=== PATIENT | male | born 2000 | race Caucasian/White ===

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

== ENCOUNTER 2021-01-14 02:07 | Emergency (ER) | payer MEDICAID, OTHER ==
[~2021-01-14] VITALS: Ht 167.6 cm; Wt 77.2 kg
[2021-01-14 02:24] VITALS: BP 151/75
--- NOTE | 2021-01-14 02:35 | NUR ---
Pt ambulated to bed 11.
--- NOTE | 2021-01-14 02:38 | NUR ---
20 Y/O MALE BIB MOTHER FOR C/O "SEVERE" LOWER ABDOMINAL PAIN 06/26 THAT STARTED SINCE SUNDAY. REPORTS FEELING NAUSEATED, DIZZINESS AND VOMITING X 1 EPISODE PRIOR TO ED VISIT. REPORTS TAKING UNKNOWN MED FOR PAIN PRIOR TO ED VISIT. ABDOMEN WAS SOFT, ROUND AND NON-TENDER TO TOUCH. ACTIVE BOWEL SOUNDS X 4 QUADRANTS. REPORTS LAST BM ON 01/12/21. PLACED IN A GOWN. MEDHX: DAMARI GOMEZ
--- NOTE | 2021-01-14 02:41 | NUR ---
ERMD AT BEDSIDE FOR MEDICAL EVALUATION.
[2021-01-14] MEDS ORDERED: ONDANSETRON 4 MG ODT PO ONE ×2 (02:45→03:10)
--- NOTE | 2021-01-14 02:57 | NUR ---
PT TAKEN TO CT
--- NOTE | 2021-01-14 03:05 | NUR ---
PT RETURN FROM CT
[2021-01-14] MEDS ORDERED: HYDROcodone/APAP 5/325 MG 1 TAB TAB PO ONE (03:10)
--- NOTE | 2021-01-14 03:10 | NUR ---
Pt returned from CT Scan.
--- NOTE | 2021-01-14 03:11 | NUR ---
Notified Dr. Martinez of Pt's complain of "severe" abdominal pain 06/26. Addendum: 01/14/21 at [address] martinez gave new orders.
[2021-01-14] MEDS ORDERED: MIRABULK PO (04:23)
[2021-01-14] MEDS ORDERED: ACET-8386 PO (04:23)
[2021-01-14 04:30] VITALS: BP 136/84
--- NOTE | 2021-01-14 04:30 | NUR ---
Patient discharged with v/s stable. Written and verbal after care instructions given and explained. Patient alert, oriented and verbalized understanding of instructions. Ambulatory with steady gait. All questions addressed prior to discharge. ID band removed. Patient advised to follow up with PMD. Rx of [place] & Miralax given. Patient educated on indication of medication including possible reaction and side effects. Opportunity to ask questions provided and answered.
== END 2021-01-14 04:30 | disposition home or self-care (01) ==
LOC: MED 02:07
DX: R10.9 Unspecified abdominal pain (principal); R11.2 Nausea with vomiting, unspecified
CPT/HCPCS: 74176; 99284; Q0162

== ENCOUNTER 2022-02-28 18:00 | Emergency (ER) | payer OTHER ==
[~2022-02-28] VITALS: Ht 167.6 cm; Wt 80.3 kg
[~2022-02-28 18:00] MED LIST changes: +ACET-8386 PO; +MIRABULK PO
[2022-02-28 18:31] VITALS: BP 122/68
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
--- NOTE | 2022-02-28 19:14 | NUR ---
HANDOFF REPORT GIVEN TO PEDRO PABLO SELF
--- NOTE | 2022-02-28 19:22 | NUR ---
DR VALENTIN AT BEDSIDE FOR EXAM
[2022-02-28] MEDS ORDERED: MORPHINE SULFATE 4 MG/ML SYR IVP ONE (19:40)
[2022-02-28] MEDS ORDERED: NACL 0.9% 1,000 ML IV ONE (19:40)
[2022-02-28] MEDS ORDERED: ONDANSETRON 4 MG/2 ML VIAL IVP ONE (19:40)
[2022-02-28 19:41] LABS: BASOPHILS % (AUTO) 0.2 % (0.0-2.0); EOSINOPHILS # (AUTO) 0.1 K/uL (0-0.4); EOSINOPHILS % (AUTO) 0.8 % (0.0-4.0); HEMATOCRIT 43.4 % (36-52); HEMOGLOBIN 14.7 g/dL (12.0-18.0); LYMPHOCYTES # (AUTO) 2.8 K/uL (2.0-11.5); LYMPHOCYTES % (AUTO) 24.5 % (20.5-51.1); MEAN CORPUSCULAR HEMOGLOBIN 30 pg (27-31); MEAN CORPUSCULAR HGB CONC 34 g/dL (33-37); MEAN CORPUSCULAR VOLUME 89.8 fL (80-94); MONOCYTES % (AUTO) 8.8 % (1.7-9.3); NEUTROPHILS # (AUTO) 7.4 K/uL (1.8-7.7); NEUTROPHILS % (AUTO) 65.7 % (42.2-75.2); PLATELET COUNT (AUTO) 243 K/uL (140-450); RED BLOOD CELL COUNT(AUTO) 4.83 MIL/uL (4.20-6.10); RED CELL DISTRIBUTION WIDTH 13.5 % (11.6-13.7); WHITE BLOOD COUNT (AUTO) 11.3 K/uL (4.5-11.0)
[2022-02-28 19:57] LABS: ALBUMIN 4.1 g/dL (3.4-5.0); ANION GAP 9.1 (8-16); CARBON DIOXIDE 28.1 mmol/L (21-32); CREATININE 1.2 mg/dL (0.6-1.3); POTASSIUM 4.2 mmol/L (3.5-5.1); TOTAL BILIRUBIN 0.4 mg/dL (0.0-1.0)
--- NOTE | 2022-02-28 20:43 | NUR ---
TO CT VIA [facility]
[2022-02-28] MEDS ORDERED: CYCL-711 PO (21:41)
[2022-02-28] MEDS ORDERED: IBUP-2213 PO (21:42)
[2022-02-28] MEDS ORDERED: LID5T TP (21:42)
[2022-02-28 22:40] VITALS: BP 104/63
--- NOTE | 2022-02-28 22:40 | NUR ---
Patient discharged with v/s stable. Written and verbal after care instructions given and explained. Patient alert, oriented and verbalized understanding of instructions. Ambulatory with steady gait. All questions addressed prior to discharge. ID band removed. Patient advised to follow up with PMD. Rx of ibuprofen, and lidoderm patch given. Patient educated on indication of medication including possible reaction and side effects. Opportunity to ask questions provided and answered.
== END 2022-02-28 22:40 | disposition home or self-care (01) ==
LOC: MED 18:00
DX: S30.1XXA Contusion of abdominal wall, initial encounter (principal); Z79.899 Other long term (current) drug therapy; V47.5XXA Car driver injured in collision with fixed or stationary object in traffic accident, initial encounter; Y93.89 Activity, other specified; Y92.89 Other specified places as the place of occurrence of the external cause; Y99.8 Other external cause status
CPT/HCPCS: 36415; 70450; 71260; 72125; 74177; 80053; 85025; 96361; 96374; 96375; 99285; J2270; J2405; J7030; Q9967